=== PATIENT | female | born 2000 | race Caucasian/White ===

== ENCOUNTER → 2018-09-08 07:15 | Outpatient (CLI) | payer MEDICAID, SELFPAY ==
--- NOTE | 2018-09-08 07:45 | MRI_ITS ---
STUDY: MRI BRAIN WITHOUT CONTRAST REASON FOR EXAM: Female, 18 years old. Chiari malformation, status post decompression with shunt placement and removal. Headaches. TECHNIQUE: Standardized multiplanar fat and water weighted pulse sequences were obtained. COMPARISON: None. FINDINGS: The shunt tract in the right frontal lobe is seen extending towards the right lateral ventricle. Normal size of the ventricles and extra-axial spaces for the patient's age. Normal white matter tracts of the supratentorial brain. There is inferior cerebellar tonsillar displacement through the foramen magnum up to approximately 8-9 mm consistent with known Chiari I malformation. Normal bilateral basal ganglia. Normal thalami. There is no extra-axial fluid accumulation. Normal flow voids within the major intracranial circulation suggesting patency by spin echo criteria. Normal sella turcica, pituitary gland, infundibular stalk, optic chiasm and hypothalamus. Normal tectal plate and pineal gland. Normal midbrain, samantha and medulla. Normal basal cisterns. Normal bilateral temporal bones. Normal bilateral internal auditory canals. No demonstrated orbital abnormality, within the constraints of a routine brain study. Normal visualized paranasal sinuses. Normal calvarium and skull base. Normal visualized soft tissue structures. Normal visualized upper cervical spine. MRI/Brain without Contrast IMPRESSION: Chiari I malformation with approximately 8-9 mm inferior displacement of the cerebellar tonsils. No hydrocephalus. No acute intracranial abnormality. Electronically Signed: Florentino Colon, at 14:04 EDT Tel , Service support ,
== END ==
PROVIDERS: Referring Provider Psychiatry & Neurology Neurology; Visit Provider Psychiatry & Neurology Neurology
DX: R51 Headache (principal); G96.19 Other disorders of meninges, not elsewhere classified; G93.5 Compression of brain; Z98.1 Arthrodesis status
CPT/HCPCS: 70551